=== PATIENT | female | born 1990 | race Caucasian/White ===

== ENCOUNTER 2016-07-10 04:58 | Emergency (ER) | payer OTHER ==
[~2016-07-10] VITALS: Ht 160 cm; Wt 60.8 kg
[~2016-07-10 04:58] MED LIST: HYDR-2666 PO; ONDA4TAB10 SL; OXYC-323 PO
[2016-07-10 05:12] VITALS: BP 108/69
[2016-07-10] MEDS ORDERED: LIDOCAINE 1%/EPI 1:100,000 20 ML VIAL. IJ ONE (05:45)
[2016-07-10] MEDS ORDERED: SULF1TAB24 PO (05:53)
--- NOTE | 2016-07-10 05:53 | PHYS DOC ---
Past Medical History Past Medical History: Ectopic Past Surgical History: Other Additional Past Surgical Histo: WISDOM TEETH EXTRACTION Alcohol Use: Occasionally Drug Use: None Adult General Chief Complaint Chief Complaint: ABSCESS HPI HPI Patient is a 25 year old female who presents with buttock abscess. The patient states she noticed the swollen area on her right buttock a few hours ago. It is painful. NO relief with sitting in a hot bath. Denies fevers/ chills, nausea, vomiting, abdominal pain, rectal pain, rectal bleeding. She has history of previous abscess requiring I&D, has actually been told that she needs to have surgery but has never followed up. Review of Systems Review of Systems Constitutional: Denies fever or chills HENT: Denies nasal congestion or sore throat Respiratory: Denies cough or shortness of breath Cardiovascular: Denies chest pain GI: Denies abdominal pain, nausea, vomiting, bloody stools or diarrhea Musculoskeletal: Denies back pain or joint pain Integument: Reports abscess. Neurologic: Denies headache Current Medications Current Medications Current Medications Medications (Trade) Dose Ordered Sig/Agustín Start Time Stop Time Status Last Admin Dose Admin Lidocaine/ Epinephrine (Xylocaine 1%-Epi 1:100,000) 20 ml 1X ONCE 07/10/16 05:45 07/10/16 05:46 DC Allergies Allergies Allergies Coded Allergies Type Severity Reaction Last Updated Verified adhesive Allergy Unknown Rash 02/03/16 Yes Physical Exam Physical Exam Constitutional: Well developed, well nourished, no acute distress, non-toxic appearance. HENT: Normocephalic, atraumatic, bilateral external ears normal, oropharynx moist, nose normal. Eyes: conjunctiva normal, no discharge. Cardiovascular: no edema. Lungs & Thorax: no respiratory distress. Abdomen: soft, nontender, nondistended. Skin: right buttock just lateral to the superior aspect of the gluteal fold 2cm area of erythema, warmth, fluctuance which is tender. not proximal to the rectum, not pilonidal.. Back: No tenderness. Extremities: No deformity Neurologic: Alert and oriented X 3 Current Patient Data Vital Signs Vital Signs Date Time Temp Pulse Resp B/P Pulse Ox O2 Delivery O2 Flow Rate FiO2 07/10/16 05:12 97.4 95 18 97 Room Air 97.4 EKG EKG [] Radiology/Procedures Radiology/Procedures [] Course & Med Decision Making Course & Med Decision Making Pertinent Labs and Imaging studies reviewed. (See chart for details) The patient presents with buttock abscess. She declined lidocaine. I&D performed by me, was unable to insert packing. Recommend sitz baths, tylenol/ ibuprofen for pain, bactrim prescription given. Follow up with primary care doctor for additional concerns. Come back for high fever, uncontrolled vomiting , spreading warmth/erythema/swelling, any otherwise worsening condition. Discharged home in stable & improved condition. [] Dragon Disclaimer Dragon Disclaimer This electronic medical record was generated, in whole or in part, using a voice recognition dictation system. Incision and Drainage Indication: buttock abscess Procedure: The patient was positioned appropriately. An incision was then made over the apex of the lesion and approximately 3 ml of purulent material was expressed. The abscess could not be packed because it was too small. The patient tolerated the procedure well. Complications: none. Departure Departure Impression: Primary Impression: Abscess of right buttock Disposition: 01 HOME, SELF-CARE Condition: STABLE Referrals: GI LUGO MD (PCP) Patient Instructions: Abscess, [id number] Additional Instructions: You were seen in the emergency department today for abscess drainage. We were not able to place packing because the area was quite small. Continue soaks in warm water. Take tylenol or ibuprofen for pain, although the pain should resolve soon. Take the prescribed antibiotic. Follow up with your primary care doctor. Come back for high fever, increased redness/warmth/swelling, any otherwise worsening condition. Scripts Sulfamethoxazole/Trimethoprim (Bactrim Ds Tablet)1 Each Tablet1 Tab PO BID #14 TAB Prov:MIKE PLASENCIA MD 07/10/16 MIKE PLASENCIA MD Jul 10, 2016 05:53
== END 2016-07-10 06:10 | disposition home or self-care (01) ==
LOC: ER 04:58
DX: L02.31 Cutaneous abscess of buttock (principal); Z88.8 Allergy status to other drugs, medicaments and biological substances
CPT/HCPCS: 10060; 99283-25

== ENCOUNTER 2016-08-24 08:16 | Day surgery (SDC) | payer OTHER ==
[~2016-08-24] VITALS: Ht 160 cm; Wt 62.1 kg
[~2016-08-24 08:16] MED LIST changes: +BUPIVAC MPF-EPI 0.5%-1:200000 30 ML VIAL. ONE; +HYDROmorphone 2 MG/ML VIAL IV PRN; +IV RINGERS,LACTATED 1000ML 1,000 ML IV SCH; +LIDOCAINE 1% 1 ML SYRINGE. ID PRN; +METHYLENE BLUE 1% 1 ML VIAL. ONE; +MORPHINE SULFATE 2 MG/ML DISP.SYRIN. IV PRN; +ONDANSETRON PF 4 MG/2 ML VIAL. IV PRN; +PROCHLORPERAZINE 10 MG/2 ML VIAL. IV PRN; +SULF1TAB24 PO; +fentaNYL PF VIAL 100 MCG/2 ML VIAL IV PRN
[2016-08-24] MEDS ORDERED: LIDOCAINE 2% PF Vial for OR 5 ML VIAL. ONE (08:59)
[2016-08-24] MEDS ORDERED: ONDANSETRON PF 4 MG/2 ML VIAL. ONE (08:59)
[2016-08-24] MEDS ORDERED: PROPOFOL 20 ML IV ONE (08:59)
[2016-08-24] MEDS ORDERED: DEXAMETHASONE SOD PHOS 20 MG/5 ML VIAL. ONE (08:59)
[2016-08-24] MEDS ORDERED: MIDAZOLAM HCL/PF 2 MG/2 ML VIAL. ONE (09:00)
[2016-08-24] MEDS ORDERED: fentaNYL PF VIAL 100 MCG/2 ML VIAL ONE (09:01)
[2016-08-24] MEDS ORDERED: ROCURONIUM 50 MG/5 ML VIAL. ONE (09:01)
[2016-08-24 09:05] LABS: NEG OBC UR NEG; POS OBC UR POS
[2016-08-24] MEDS ORDERED: METHYLENE BLUE 1% 1 ML VIAL. IJ ONE (10:05)
[2016-08-24] MEDS ORDERED: NEOSTIGMINE METHYLSULFATE 5 MG/5 ML SYRINGE. ONE (10:13)
[2016-08-24] MEDS ORDERED: GLYCOPYRROLATE 1 MG/5 ML VIAL. ONE (10:13)
[2016-08-24] MEDS ORDERED: oxyCODONE/APAP 5/325 1 TAB TABLET PO ONE (10:45)
--- NOTE | 2016-08-24 10:45 | PDOC ---
BRIEF OPERATIVE NOTE Pre-Op Diagnosis pilonidal cyst excision of pilonidal cyst roge hoyt ebl 5 ivf 600 teresita well to rr stable. #[id number] MAURO RAMSEY MD Aug 24, 2016 10:45
[2016-08-24 12:00] VITALS: BP 96/67
--- NOTE | 2016-08-24 12:43 | OP ---
DATE OF SURGERY: 08/24/2016 PREOPERATIVE DIAGNOSIS: Pilonidal cyst. POSTOPERATIVE DIAGNOSIS: Pilonidal cyst. PROCEDURE: Excision of pilonidal cyst. SURGEON: Mauro Ramsey M.D. ANESTHESIA: General. ESTIMATED BLOOD LOSS: 5 mL. INTRAVENOUS FLUIDS: 600 mL. INDICATIONS: The patient is a 25-year-old female who has had several episodes of infected pilonidal cyst. She is here today for definitive excision. PROCEDURE IN DETAIL: After informed consent was obtained, the patient was taken to the operating room and placed in supine position. After adequate induction of general anesthesia, she was placed prone and then she was prepped and draped in usual sterile fashion. She has 2 pits that were visible. These were injected with methylene blue. One of the pits communicates with the former I and D site. At this point an incision was made around the pilonidal disease with a scalpel and extended through subcutaneous tissue with cautery. There was no methylene blue encountered indicating that the extent to the disease demonstrated by methylene blue had been excised with the initial incision. After excising the pilonidal disease, the wound was inspected and was made hemostatic with cautery. There was one area at the base of the wound that was oversewn with a 3-0 Vicryl suture to be obtained hemostasis. The wound was irrigated and was hemostatic. It was injected with local anesthetic. The subcutaneous tissue, base of the wound appeared healthy. The wound was then packed with Kerlix slightly moistened with saline. She tolerated the procedure well. There were no apparent complications. She is in the process of being transferred in stable condition to the recovery room. MAURO RAMSEY MD DR: PATRICE/elva JOB#: [id number] / [id number] GI Harvey MD
--- NOTE | 2016-08-26 11:44 | PATHOLOGY ---
PATHOLOGY REPORT * * * * * * * * FINAL DIAGNOSIS: Skin and subcutaneous tissue, pilonidal cyst excision: - Pilonidal sinus/abscess. COMMENT: There is no evidence of malignancy. (JPM:; d/t: 08/26/16) REPORT ELECTRONICALLY SIGNED BY: Rodolfo Stewart M.D. DATE/TIME: 08/26/2016 11:43 * * * * * * * * GROSS PATHOLOGY: The specimen is received in formalin, labeled "Lilian Bernstein, pilonidal cyst." Received is a segment of pink-hubbard, slightly wrinkled skin with attached fibroadipose tissue measuring 3.8 x 1.7 x 1.4 cm in greatest dimensions. The surgical margin is inked. Sectioning reveals a unilocular cystic structure filled with light hubbard friable material measuring 0.8 cm in length. The specimen is submitted representatively in cassette A1. (KAH; 08/25/2016) INITIAL CPT CODE(S): A; 72597 Professional services performed [place] [address] Technical services performed by [facility] at [address] [place] [address] [address], [place] [address]. SPECIMEN(S) RECEIVED: A.Pilonidal cyst CLINICAL HISTORY: Pilonidal cyst PATIENT: LILIAN BERNSTEIN /AGE: 609/03/1990 (Age: 25) PATIENT #: [id number] ALT CASE #: SPECIMEN COLLECTION DATE: 08/24/2016 SPECIMEN RECEIVED DATE: 08/24/2016 [facility] - [address] [place] [address] - PHONE: [phone] * * * END OF REPORT * * *
== END 2016-08-24 12:04 | disposition home or self-care (01) ==
LOC: SURG 08:16
PROVIDERS: ATTEND Surgery
DX: L05.91 Pilonidal cyst without abscess (principal)
CPT/HCPCS: 11770; 81025; J0690; J1100; J2250; J2405; J2704; J2710; J3010; J3490; Q9968